=== PATIENT | male | born 1990 | race Caucasian/White ===

== ENCOUNTER 2016-11-02 15:48 | Emergency (ER) | payer BC, OTHER ==
--- NOTE | 2016-11-02 15:50 | EDM.PDOC ---
ED HPI GENERAL MEDICAL PROBLEM - General Chief Complaint: Chest Pain Stated Complaint: CHEST PAIN [id number] Time Seen by Provider: 11/02/16 16:10 Source of Information: Reports: Patient, RN Notes Reviewed History Limitations: Reports: No Limitations - History of Present Illness INITIAL COMMENTS - FREE TEXT/NARRATIVE: Complains of onset of left lower chest/upper abdominal pain at 0130 this morning while playing video games. Patient reports SOB on and off. Pain is worse with deep breathing and some movement/positioning. Denies radiating pain or palpitation. Denies drug use or injury. Severity: Severe Improves with: Reports: None Worsens with: Reports: None Associated Symptoms: Reports: No Other Symptoms Mid-Sternal Chest Pain Score (Numeric/FACES): 10 - Related Data Allergies Allergy/AdvReac Type Severity Reaction Status Date / Time No Known Allergies Allergy Verified 04/08/14 12:03 Home Meds: Home Meds . [No Known Home Meds] 04/08/14 [History] Past Medical History - Past Health History Medical/Surgical History: Denies Medical/Surgical History Social & Family History - Family History Family Medical History: Noncontributory - Tobacco Use Smoking Status *Q: Former Smoker Years of Tobacco use: 3 Used Tobacco, but Quit: Yes Month Tobacco Last Used: 06 Second Hand Smoke Exposure: No - Alcohol Use Days Per Week of Alcohol Use: 0 - Recreational Drug Use Recreational Drug Use: No - Living Situation & Occupation Living situation: Reports: with Family Occupation: Employed ED ROS GENERAL - Review of Systems Review Of Systems: ROS reveals no pertinent complaints other than HPI. ED EXAM, GENERAL - Physical Exam Exam: See Below Exam Limited By: No Limitations General Appearance: Alert, WD/WN, No Apparent Distress, Obese Eye Exam: Bilateral Eye: Normal Inspection Ears: Normal External Exam, Normal Canal, Hearing Grossly Normal, Normal TMs Ear Exam: Bilateral Ear: Auricle Normal, Canal Normal, TM normal Nose: Normal Inspection, Normal Mucosa, No Blood Throat/Mouth: Normal Inspection, Normal Lips, Normal Teeth, Normal Gums, Normal Oropharynx, Normal Voice, No Airway Compromise Head: Atraumatic, Normocephalic Neck: Normal Inspection, Supple, Non-Tender, Full Range of Motion Respiratory/Chest: No Respiratory Distress, Lungs Clear, Normal Breath Sounds, No Accessory Muscle Use, Chest Non-Tender, Other (tender to palpation at left lower anterior chest wall.) Cardiovascular: Normal Peripheral Pulses, Regular Rate, Rhythm, No Edema, No Gallop, No JVD, No Murmur, No Rub GI/Abdominal: Normal Bowel Sounds, Soft, No Distention, No Abnormal Bruit, Pelvis Stable, Tender (LUQ), Other (Mild LUQ tenderness, otherwise normal. ). No: Guarding, Rigid, Rebound Rectal (Males) Exam: Deferred Back Exam: Normal Inspection, Full Range of Motion. No: CVA Tenderness (L), CVA Tenderness (R) Extremities: Normal Inspection, Normal Range of Motion, Non-Tender, Normal Capillary Refill, No Pedal Edema Neurological: Alert, Oriented, CN II-XII Intact, Normal Cognition, Normal Gait, No Motor/Sensory Deficits Psychiatric: Normal Affect, Normal Mood Skin Exam: Warm, Dry, Intact, Normal Color, No Rash Lymphatic: No Adenopathy EKG INTERPRETATION EKG Date: 11/02/16 Time: 16:15 Rhythm: other (sinus rhythm) Rate (beats/min): 90 [place]: normal P-wave: present QRS: other (tiny Q wave in lead I and III, otherwise normal.) ST-T: other (nonspecific flattened T waves in lead III.) QT: normal Comparison: NA - no prior EKG Course - Vital Signs Last Recorded V/S: Last Vital Signs Temp 38.5 C H 11/02/16 18:07 Pulse 83 11/02/16 18:07 Resp 24 H 11/02/16 18:07 BP 116/63 11/02/16 18:07 Pulse Ox 96 11/02/16 18:07 - Orders/Labs/Meds Orders: Active Orders 24 hr Category Date Time Status EKG 12 Lead [EKG Documentation Completion] [RC] STAT Care 11/02/16 16:11 Active Peripheral IV Care [RC] . DIRECTED Care 11/02/16 16:20 Active Sodium Chloride 0.9% [Saline Flush] Med 11/02/16 16:18 Active 10 ml FLUSH ASDIRECTED PRN Peripheral IV Insertion Adult [OM.PC] Stat Oth 11/02/16 16:19 Ordered Medication Orders Sodium Chloride (Saline Flush) 10 ml FLUSH ASDIRECTED PRN PRN Reason: Keep Vein Open Last Admin: 11/02/16 16:36 Dose: 10 ml Labs: Laboratory Tests 11/02/16 11/02/16 11/02/16 Range/Units 16:30 16:30 16:30 WBC 4.7 L (5.0-10.0) 10^3/uL RBC 5.06 (4.6-6.2) 10^6/uL Hgb 15.0 (14.0-18.0) g/dL Hct 43.7 (40.0-54.0) % MCV 86.4 (80-100) fL MCH 29.6 (27.0-34.0) pg MCHC 34.3 (33.0-35.0) g/dL Plt Count 210 (150-450) 10^3/uL Neut % (Auto) 43.8 (42.2-75.2) % Lymph % (Auto) 29.9 (20.5-50.1) % [place] % (Auto) 19.7 H (2-8) % Eos % (Auto) 5.3 H (1.0-3.0) % Baso % (Auto) 1.3 H (0.0-1.0) % Add Manual Diff Yes Neutrophils % (Manual) 46 % Band Neutrophils % 6 % Lymphocytes % (Manual) 31 % Monocytes % (Manual) 13 % Eosinophils % (Manual) 4 % PT (9.0-12.0) SEC INR (0.9-1.2) D-Dimer, Quantitative 1230 H (0-400) ng/mL Sodium 137 (135-145) mmol/L Potassium 3.9 (3.6-5.0) mmol/L Chloride 105 (101-111) mmol/L Carbon Dioxide 24.0 (21.0-31.0) mmol/L Anion Gap 11.9 BUN 10 (7-18) mg/dL Creatinine 0.9 (0.6-1.3) mg/dL Est Cr Clr Drug Dosing 132.47 mL/min Estimated GFR (MDRD) > 60 BUN/Creatinine Ratio 11.11 Glucose 107 H (74-105) mg/dL Calcium 9.2 (8.4-10.2) mg/dl Total Bilirubin 0.5 (0.2-1.0) mg/dL AST 95 H (10-42) IU/L ALT 105 H (10-60) IU/L Alkaline Phosphatase 113 (42-121) IU/L Troponin I < 0.02 (0.00-0.02) ng/ml Total Protein 7.3 (6.7-8.2) g/dl Albumin 4.0 (3.2-5.5) g/dl Globulin 3.3 Albumin/Globulin Ratio 1.21 Amylase 56 (28-100) U/L Lipase 21 L (22-51) U/L Urine Color (YELLOW) Urine Appearance (CLEAR) Urine pH (5.0-9.0) Ur Specific [place] (1.005-1.030) Urine Protein (NEGATIVE) Urine Glucose (UA) (NEGATIVE) Urine Ketones (NEGATIVE) mg/dL Urine Occult Blood (NEGATIVE) Urine Nitrite (NEGATIVE) Urine Bilirubin (NEGATIVE) Urine Urobilinogen (0.2-1.0) mg/dL Ur Leukocyte Esterase (NEGATIVE) Urine RBC /HPF Urine WBC (0-5/HPF) /HPF Ur Epithelial Cells /HPF Urine Bacteria (0-FEW/HPF) /HPF Monoscreen 11/02/16 11/02/16 11/02/16 Range/Units 16:30 16:30 18:03 WBC (5.0-10.0) 10^3/uL RBC (4.6-6.2) 10^6/uL Hgb (14.0-18.0) g/dL Hct (40.0-54.0) % MCV (80-100) fL MCH (27.0-34.0) pg MCHC (33.0-35.0) g/dL Plt Count (150-450) 10^3/uL Neut % (Auto) (42.2-75.2) % Lymph % (Auto) (20.5-50.1) % [place] % (Auto) (2-8) % Eos % (Auto) (1.0-3.0) % Baso % (Auto) (0.0-1.0) % Add Manual Diff Neutrophils % (Manual) % Band Neutrophils % % Lymphocytes % (Manual) % Monocytes % (Manual) % Eosinophils % (Manual) % PT 9.8 (9.0-12.0) SEC INR 1.0 (0.9-1.2) D-Dimer, Quantitative (0-400) ng/mL Sodium (135-145) mmol/L Potassium (3.6-5.0) mmol/L Chloride (101-111) mmol/L Carbon Dioxide (21.0-31.0) mmol/L Anion Gap BUN (7-18) mg/dL Creatinine (0.6-1.3) mg/dL Est Cr Clr Drug Dosing mL/min Estimated GFR (MDRD) BUN/Creatinine Ratio Glucose (74-105) mg/dL Calcium (8.4-10.2) mg/dl Total Bilirubin (0.2-1.0) mg/dL AST (10-42) IU/L ALT (10-60) IU/L Alkaline Phosphatase (42-121) IU/L Troponin I (0.00-0.02) ng/ml Total Protein (6.7-8.2) g/dl Albumin (3.2-5.5) g/dl Globulin Albumin/Globulin Ratio Amylase (28-100) U/L Lipase (22-51) U/L Urine Color Yellow (YELLOW) Urine Appearance Clear (CLEAR) Urine pH 7.5 (5.0-9.0) Ur Specific [place] 1.015 (1.005-1.030) Urine Protein Negative (NEGATIVE) Urine Glucose (UA) Negative (NEGATIVE) Urine Ketones Negative (NEGATIVE) mg/dL Urine Occult Blood Negative (NEGATIVE) Urine Nitrite Negative (NEGATIVE) Urine Bilirubin Negative (NEGATIVE) Urine Urobilinogen 0.2 (0.2-1.0) mg/dL Ur Leukocyte Esterase Negative (NEGATIVE) Urine RBC Not seen /HPF Urine WBC 0-5 (0-5/HPF) /HPF Ur Epithelial Cells Rare /HPF Urine Bacteria Rare (0-FEW/HPF) /HPF Monoscreen Negative Meds: Medications Generic Name Dose Route Start Last Admin Trade Name Freq PRN Reason Stop Dose Admin Sodium Chloride 10 ml 11/02/16 16:18 11/02/16 16:36 Saline Flush FLUSH 10 ml ASDIRECTED PRN Administration Keep Vein Open Discontinued Medications Generic Name Dose Route Start Last Admin Trade Name Freq PRN Reason Stop Dose Admin Acetaminophen 650 mg 11/02/16 18:52 11/02/16 19:01 Tylenol PO 11/02/16 18:53 650 mg NOW ONE Administration Iopamidol 100 ml 11/02/16 17:20 11/02/16 18:35 Isovue-370 (76%) IVPUSH 11/02/16 17:21 100 ml ONETIME ONE Administration - Radiology Interpretation Free Text/Narrative:: Chest x-ray: Per rad report reveals unremarkable chest radiograph. CT chest: Per rad report no evidence for pulmonary embolism, dependent atelectasis in the lungs bilaterally, mild splenomegaly and incidental/nonacute findings are described above, normal gallbladder. - Re-Assessments/Exams Free Text/Narrative Re-Assessment/Exam: 11/02/16 19:34 Pt developed a fever briefly while in the ER. At 1930HRS pt states that all of his Sx's have gone away and he feels fine. He also adds that his children have been ill at home this week with fevers. Departure - Departure Time of Disposition: 19:35 Disposition: Home, Self-Care 01 Condition: good Clinical Impression: Atypical chest pain, Upper abdominal pain Fever Qualifiers: Fever type: unspecified Qualified Code(s): R50.9 - Fever, unspecified Instructions: Nonspecific Chest Pain, [id number], Fever, Adult, [id number] Forms: ED Department Discharge Additional Instructions: Rest, drink plenty of water. Use Tylenol or Ibuprofen as needed for fever or pain. Follow directions on package label for dosing and precautions. Follow up in clinic if not improved in 3 days. Return to ER if worse at any time, or if any new or concerning symptoms develop. - My Orders Last 24 Hours: My Active Orders 11/02/16 16:11 EKG 12 Lead [EKG Documentation Completion] [RC] STAT 11/02/16 16:18 Sodium Chloride 0.9% [Saline Flush] 10 ml FLUSH ASDIRECTED PRN 11/02/16 16:19 Peripheral IV Insertion Adult [OM.PC] Stat 11/02/16 16:20 Peripheral IV Care [RC] . DIRECTED - Assessment/Plan Last 24 Hours: My Active Orders 11/02/16 16:11 EKG 12 Lead [EKG Documentation Completion] [RC] STAT 11/02/16 16:18 Sodium Chloride 0.9% [Saline Flush] 10 ml FLUSH ASDIRECTED PRN 11/02/16 16:19 Peripheral IV Insertion Adult [OM.PC] Stat 11/02/16 16:20 Peripheral IV Care [RC] . DIRECTED
[2016-11-02] MEDS ORDERED: Sodium Chloride 0.9% 10 ML Syringe FLUSH PRN (16:18)
[2016-11-02 16:56] LABS: CHLORIDE,CL 105 mmol/L (101-111); SODIUM,NA 137 mmol/L (135-145)
[2016-11-02] MEDS ORDERED: Iopamidol 755 Mg/ML 100 ML Bottle IVPUSH ONE (17:20)
[2016-11-02 18:08] VITALS: BP 116/63
[2016-11-02] MEDS ORDERED: Acetaminophen 325 MG Tab PO ONE (18:52)
--- NOTE | 2016-11-24 11:58 | EKG ---
11/02/2016 - GISELL DUNN T - EKG is sinus rhythm with a rate of 90. Normal NM interval. Normal axis. EKG is within normal limits. [facility] /[id number]
== END 2016-11-02 19:48 | disposition home or self-care (01) ==
LOC: DL.ED 15:48
DX: R07.89 Other chest pain (principal); R50.9 Fever, unspecified; R10.12 Left upper quadrant pain; Z87.891 Personal history of nicotine dependence
CPT/HCPCS: 36415; 71010; 71260; 80053; 81001; 82150; 83690; 84484; 85025; 85379; 85610; 86308; 93005; 93010; 99285; A9270; J7050; Q9967; 99282

== ENCOUNTER 2016-11-03 19:00 | Emergency (ER) | payer BC, OTHER ==
[2016-11-03] MEDS ORDERED: Iopamidol 612 MG/ML 100 ML Bottle IVPUSH ONE (19:38)
[2016-11-03] MEDS ORDERED: Sodium Chloride 0.9% 1,000 ML IV ONE (19:38)
--- NOTE | 2016-11-03 19:41 | EDM.PDOC ---
ED HPI GENERAL MEDICAL PROBLEM - General Chief Complaint: Abdominal Pain Stated Complaint: SIDE/CHEST PAINS, [id number] Time Seen by Provider: 11/03/16 19:15 Source of Information: Reports: Patient History Limitations: Reports: No Limitations - History of Present Illness INITIAL COMMENTS - FREE TEXT/NARRATIVE: c/o LUQ pain starting intermittently at noon today. Pain worse tonight and radiating to back, worse with movement. Patient seen in ED last laura with left chest pain with negative findings. No fever today, Has been pushing fluids, only ate banana and pain started after eating and taking ibuprofen. . Denies heartburn. Onset: Today Duration: Intermittent, Waxing/Waning Location: Reports: Abdomen Quality: Reports: Sharp Severity: Mild Worsens with: Reports: Movement Left Upper Abdomen Pain Score (Numeric/FACES): 10 - Related Data Allergies Allergy/AdvReac Type Severity Reaction Status Date / Time No Known Allergies Allergy Verified 11/03/16 19:13 Home Meds: Home Meds . [No Known Home Meds] 04/08/14 [History] Past Medical History - Past Health History Medical/Surgical History: Denies Medical/Surgical History - Infectious Disease History Infectious Disease History: Reports: Chicken Pox Social & Family History - Family History Family Medical History: Noncontributory - Tobacco Use Smoking Status *Q: Never Smoker Years of Tobacco use: 3 Packs/Tins Daily: 1 Used Tobacco, but Quit: Yes Month Tobacco Last Used: Second Hand Smoke Exposure: No - Caffeine Use Caffeine Use: Reports: Soda, Tea - Alcohol Use Days Per Week of Alcohol Use: 0 - Recreational Drug Use Recreational Drug Use: No - Living Situation & Occupation Living situation: Reports: with Family Occupation: Employed ED ROS GENERAL - Review of Systems Review Of Systems: See Below Constitutional: Reports: No Symptoms HEENT: Reports: No Symptoms Respiratory: Reports: No Symptoms, Shortness of Breath (primary ED complaint last laura, No "chest" pain or SOB this laura. ) GI/Abdominal: Reports: Abdominal Pain (LUQ) : Reports: No Symptoms Musculoskeletal: Reports: No Symptoms Skin: Reports: Dryness Neurological: Reports: No Symptoms ED EXAM, GI/ABD - Physical Exam Exam: See Below Exam Limited By: No Limitations General Appearance: Alert, No Apparent Distress Ears: Normal External Exam Nose: Normal Inspection Throat/Mouth: Normal Inspection Head: Atraumatic Neck: Normal Inspection Respiratory/Chest: No Respiratory Distress, Lungs Clear Cardiovascular: Normal Peripheral Pulses, Regular Rate, Rhythm GI/Abdominal: Normal Bowel Sounds, Soft, Tenderness (LUQ). No: Hepatomegaly, Splenomegaly Back Exam: Normal Inspection, Full Range of Motion Extremities: Normal Inspection, Normal Range of Motion Neurological: Alert, Oriented Psychiatric: Normal Affect, Normal Mood Skin Exam: Warm, Dry, Intact, Normal Color Course - Vital Signs Last Recorded V/S: Last Vital Signs Temp 98 F 11/03/16 19:08 Pulse 75 11/03/16 21:15 Resp 18 11/03/16 21:15 BP 121/78 11/03/16 21:15 Pulse Ox 99 11/03/16 21:15 - Orders/Labs/Meds Labs: Laboratory Tests 11/03/16 11/03/16 11/03/16 Range/Units 19:15 19:15 19:15 WBC 6.1 (5.0-10.0) 10^3/uL RBC 4.68 (4.6-6.2) 10^6/uL Hgb 14.0 (14.0-18.0) g/dL Hct 40.4 (40.0-54.0) % MCV 86.3 (80-100) fL MCH 29.9 (27.0-34.0) pg MCHC 34.7 (33.0-35.0) g/dL Plt Count 223 (150-450) 10^3/uL Neut % (Auto) 41.4 L (42.2-75.2) % Lymph % (Auto) 34.8 (20.5-50.1) % [place] % (Auto) 17.0 H (2-8) % Eos % (Auto) 5.3 H (1.0-3.0) % Baso % (Auto) 1.5 H (0.0-1.0) % Add Manual Diff Yes Neutrophils % (Manual) 56 % Lymphocytes % (Manual) 28 % Monocytes % (Manual) 12 % Eosinophils % (Manual) 4 % Sodium 136 (135-145) mmol/L Potassium 3.4 L (3.6-5.0) mmol/L Chloride 103 (101-111) mmol/L Carbon Dioxide 25.0 (21.0-31.0) mmol/L Anion Gap 11.4 BUN 13 (7-18) mg/dL Creatinine 1.0 (0.6-1.3) mg/dL Est Cr Clr Drug Dosing TNP Estimated GFR (MDRD) > 60 BUN/Creatinine Ratio 13.00 Glucose 109 H (74-105) mg/dL Calcium 8.6 (8.4-10.2) mg/dl Total Bilirubin 0.6 (0.2-1.0) mg/dL AST 102 H (10-42) IU/L ALT 117 H (10-60) IU/L Alkaline Phosphatase 111 (42-121) IU/L Total Protein 7.1 (6.7-8.2) g/dl Albumin 4.0 (3.2-5.5) g/dl Globulin 3.1 Albumin/Globulin Ratio 1.29 Amylase 55 (28-100) U/L Lipase 23 (22-51) U/L Urine Color (YELLOW) Urine Appearance (CLEAR) Urine pH (5.0-9.0) Ur Specific [place] (1.005-1.030) Urine Protein (NEGATIVE) Urine Glucose (UA) (NEGATIVE) Urine Ketones (NEGATIVE) Urine Occult Blood (NEGATIVE) Urine Nitrite (NEGATIVE) Urine Bilirubin (NEGATIVE) Urine Urobilinogen (0.2-1.0) mg/dL Ur Leukocyte Esterase (NEGATIVE) Urine RBC /HPF Urine WBC (0-5/HPF) /HPF Ur Epithelial Cells /HPF Urine Bacteria (0-FEW/HPF) /HPF // Range/Units 19:43 WBC (5.0-10.0) 10^3/uL RBC (4.6-6.2) 10^6/uL Hgb (14.0-18.0) g/dL Hct (40.0-54.0) % MCV (80-100) fL MCH (27.0-34.0) pg MCHC (33.0-35.0) g/dL Plt Count (150-450) 10^3/uL Neut % (Auto) (42.2-75.2) % Lymph % (Auto) (20.5-50.1) % [place] % (Auto) (2-8) % Eos % (Auto) (1.0-3.0) % Baso % (Auto) (0.0-1.0) % Add Manual Diff Neutrophils % (Manual) % Lymphocytes % (Manual) % Monocytes % (Manual) % Eosinophils % (Manual) % Sodium (135-145) mmol/L Potassium (3.6-5.0) mmol/L Chloride (101-111) mmol/L Carbon Dioxide (21.0-31.0) mmol/L Anion Gap BUN (7-18) mg/dL Creatinine (0.6-1.3) mg/dL Est Cr Clr Drug Dosing Estimated GFR (MDRD) BUN/Creatinine Ratio Glucose (74-105) mg/dL Calcium (8.4-10.2) mg/dl Total Bilirubin (0.2-1.0) mg/dL AST (10-42) IU/L ALT (10-60) IU/L Alkaline Phosphatase (42-121) IU/L Total Protein (6.7-8.2) g/dl Albumin (3.2-5.5) g/dl Globulin Albumin/Globulin Ratio Amylase (28-100) U/L Lipase (22-51) U/L Urine Color Light yellow (YELLOW) Urine Appearance Clear (CLEAR) Urine pH 6.5 (5.0-9.0) Ur Specific [place] <= 1.005 (1.005-1.030) Urine Protein Negative (NEGATIVE) Urine Glucose (UA) Negative (NEGATIVE) Urine Ketones Negative (NEGATIVE) Urine Occult Blood Trace-intact H (NEGATIVE) Urine Nitrite Negative (NEGATIVE) Urine Bilirubin Negative (NEGATIVE) Urine Urobilinogen 0.2 (0.2-1.0) mg/dL Ur Leukocyte Esterase Negative (NEGATIVE) Urine RBC 0-5 /HPF Urine WBC 0-5 (0-5/HPF) /HPF Ur Epithelial Cells Occasional /HPF Urine Bacteria Rare (0-FEW/HPF) /HPF Meds: Medications Discontinued Medications Generic Name Dose Route Start Last Admin Trade Name Freq PRN Reason Stop Dose Admin Sodium Chloride 1,000 mls @ 999 mls/hr 11/03/16 19:38 11/03/16 19:41 Normal Saline IV 11/03/16 20:38 999 mls/hr .BOLUS ONE Administration Iopamidol 100 ml 11/03/16 19:38 11/03/16 20:00 Isovue-300 (61%) IVPUSH 11/03/16 19:39 100 ml ONETIME ONE Administration Departure - Departure Time of Disposition: 21:15 Disposition: Home, Self-Care 01 Condition: good Clinical Impression: Enteritis, Hepatosplenomegaly - Discharge Information Instructions: Abdominal Pain, Adult, [id number] Referrals: PCP,None [Primary Care Provider] - Forms: Return to Work/School Form, ED Department Discharge Additional Instructions: light activity encourage fluids follow up if continued pain follow up one week in clinic to recheck liver function no contact sports or aggressive activity until recheck in clinic one- 2 weeks ibuprofen 600mg every hours as needed for discomfort or fever.
[2016-11-03 19:43] LABS: CHLORIDE,CL 103 mmol/L (101-111); SODIUM,NA 136 mmol/L (135-145)
[2016-11-03 21:21] VITALS: BP 121/78
== END 2016-11-03 21:18 | disposition home or self-care (01) ==
LOC: DL.ED 19:00
DX: K52.9 Noninfective gastroenteritis and colitis, unspecified (principal); R16.2 Hepatomegaly with splenomegaly, not elsewhere classified
CPT/HCPCS: 36415; 74178; 80053; 81001; 82150; 83690; 85025; 96360; 99284; J7030; Q9967; 99282

== ENCOUNTER 2019-11-16 17:54 | Emergency (ER) | payer BC ==
[2019-11-16 18:36] VITALS: BP 130/76; PULSE 102
[2019-11-16 20:23] LABS: ANION GAP 16.9 mEq/L (7-13); CHLORIDE,CL 103 mmol/L (98-107); SODIUM,NA 140 mmol/L (136-145)
--- NOTE | 2019-11-16 22:49 | EDM.PDOC ---
ED HPI GENERAL MEDICAL PROBLEM - General Chief Complaint: Cardiovascular Problem Stated Complaint: CHEST PAIN, FECIES WERE BLACK, BREATHING Time Seen by Provider: 11/16/19 22:00 Source of Information: Reports: Patient, Family History Limitations: Reports: No Limitations - History of Present Illness INITIAL COMMENTS - FREE TEXT/NARRATIVE: ED with c/o epigastric pain worse with eating yesterday, felt short of breath today, hx of liver problems, has had intermittent RUQ pain and nausea for over 2 months, has not followed in clinic. Has not tried anything. 10 power kick sodas at least per day, denied alcohol or tobacco abuse. - Related Data Allergies Allergy/AdvReac Type Severity Reaction Status Date / Time No Known Allergies Allergy Verified 11/16/19 18:37 Home Meds: Home Meds Hydrocodone/Acetaminophen [Hydrocodone-Acetamin 10-325 mg] 0.5 - 1 tab PO Q8H PRN #6 tablet 03/28/18 [Rx] Past Medical History - Past Health History Medical/Surgical History: Denies Medical/Surgical History Other Gastrointestinal History: Reports "liver attack" - Infectious Disease History Infectious Disease History: Reports: Chicken Pox Social & Family History - Family History Family Medical History: Noncontributory - Tobacco Use Smoking Status *Q: Never Smoker Second Hand Smoke Exposure: No - Caffeine Use Caffeine Use: Reports: None - Recreational Drug Use Recreational Drug Use: No - Living Situation & Occupation Living situation: Reports: with Family Occupation: Employed ED ROS GENERAL - Review of Systems Review Of Systems: See Below ED EXAM, GENERAL - Physical Exam Exam: See Below Exam Limited By: No Limitations General Appearance: Alert, No Apparent Distress, Obese Eye Exam: Bilateral Eye: EOMI, PERRL Ears: Normal TMs Nose: Normal Inspection Throat/Mouth: Normal Inspection Head: Atraumatic, Normocephalic Neck: Normal Inspection Respiratory/Chest: No Respiratory Distress, Lungs Clear, Normal Breath Sounds, No Accessory Muscle Use Cardiovascular: Normal Peripheral Pulses, Regular Rate, Rhythm GI/Abdominal: Normal Bowel Sounds, Soft, Tender (mild mid epigastric), Other (nontender RUQ). No: Distended, Guarding, Rebound, Hepatomegaly, Splenomegaly Neurological: Alert, Oriented, Normal Cognition Psychiatric: Flat Affect Skin Exam: Warm, Dry, Intact, Normal Color Course - Vital Signs Last Recorded V/S: Last Vital Signs Temp 99.3 F 11/16/19 18:34 Pulse 102 H 11/16/19 18:34 Resp 18 11/16/19 18:34 BP 130/76 11/16/19 18:34 Pulse Ox 96 11/16/19 18:34 - Orders/Labs/Meds Labs: Laboratory Tests 11/16/19 11/16/19 11/16/19 Range/Units 19:35 19:35 19:35 WBC 10.3 H (5.0-10.0) 10^3/uL RBC 5.16 (4.6-6.2) 10^6/uL Hgb 15.2 (14.0-18.0) g/dL Hct 44.1 (40.0-54.0) % MCV 85.5 (80-100) fL MCH 29.5 (27.0-34.0) pg MCHC 34.5 (33.0-35.0) g/dL Plt Count 316 D (150-450) 10^3/uL Neut % (Auto) 63.1 (42.2-75.2) % Lymph % (Auto) 25.6 (20.5-50.1) % [place] % (Auto) 8.2 H (2-8) % Eos % (Auto) 2.4 (1.0-3.0) % Baso % (Auto) 0.7 (0.0-1.0) % PT 9.8 (9.0-12.0) SEC INR 1.0 (0.9-1.2) Sodium 140 (136-145) mmol/L Potassium 3.9 (3.5-5.1) mmol/L Chloride 103 (98-107) mmol/L Carbon Dioxide 24 (21-32) mmol/L Anion Gap 16.9 H (7-13) mEq/L BUN 20 H (7-18) mg/dL Creatinine 1.07 (0.70-1.30) mg/dL Est Cr Clr Drug Dosing 108.49 mL/min Estimated GFR (MDRD) > 60 BUN/Creatinine Ratio 18.7 (No establ ref range) Glucose 90 (74-99) mg/dL Lactic Acid (0.4-2.0) mmol/L Calcium 9.0 (8.5-10.1) mg/dL Total Bilirubin 0.3 (0.2-1.0) mg/dL AST 30 (15-37) U/L ALT 74 H (16-63) U/L Alkaline Phosphatase 110 (46-116) U/L Total Protein 7.8 (6.4-8.2) g/dL Albumin 3.9 (3.4-5.0) g/dL Globulin 3.9 Albumin/Globulin Ratio 1.0 Amylase 72 (25-115) U/L Lipase 100 (73-393) U/L Urine Color (YELLOW) Urine Appearance (CLEAR) Urine pH (5.0-9.0) Ur Specific [place] (1.005-1.030) Urine Protein (NEGATIVE) Urine Glucose (UA) (NEGATIVE) Urine Ketones (NEGATIVE) Urine Occult Blood (NEGATIVE) Urine Nitrite (NEGATIVE) Urine Bilirubin (NEGATIVE) Urine Urobilinogen (0.2-1.0) mg/dL Ur Leukocyte Esterase (NEGATIVE) Urine Opiates Screen (NEGATIVE) Ur Oxycodone Screen (NEGATIVE) Urine Methadone Screen (NEGATIVE) Ur Barbiturates Screen (NEGATIVE) U Tricyclic Antidepress (NEGATIVE) Ur Phencyclidine Scrn (NEGATIVE) Ur Amphetamine Screen (NEGATIVE) U Methamphetamines Scrn (NEGATIVE) Urine MDMA Screen (NEGATIVE) U Benzodiazepines Scrn (NEGATIVE) Urine Cocaine Screen (NEGATIVE) U Marijuana (THC) Screen (NEGATIVE) Ethyl Alcohol < 3 (0) mg/dL 11/16/19 11/16/19 11/16/19 Range/Units 19:35 20:21 20:21 WBC (5.0-10.0) 10^3/uL RBC (4.6-6.2) 10^6/uL Hgb (14.0-18.0) g/dL Hct (40.0-54.0) % MCV (80-100) fL MCH (27.0-34.0) pg MCHC (33.0-35.0) g/dL Plt Count (150-450) 10^3/uL Neut % (Auto) (42.2-75.2) % Lymph % (Auto) (20.5-50.1) % [place] % (Auto) (2-8) % Eos % (Auto) (1.0-3.0) % Baso % (Auto) (0.0-1.0) % PT (9.0-12.0) SEC INR (0.9-1.2) Sodium (136-145) mmol/L Potassium (3.5-5.1) mmol/L Chloride (98-107) mmol/L Carbon Dioxide (21-32) mmol/L Anion Gap (7-13) mEq/L BUN (7-18) mg/dL Creatinine (0.70-1.30) mg/dL Est Cr Clr Drug Dosing mL/min Estimated GFR (MDRD) BUN/Creatinine Ratio (No establ ref range) Glucose (74-99) mg/dL Lactic Acid 1.0 (0.4-2.0) mmol/L Calcium (8.5-10.1) mg/dL Total Bilirubin (0.2-1.0) mg/dL AST (15-37) U/L ALT (16-63) U/L Alkaline Phosphatase (46-116) U/L Total Protein (6.4-8.2) g/dL Albumin (3.4-5.0) g/dL Globulin Albumin/Globulin Ratio Amylase (25-115) U/L Lipase (73-393) U/L Urine Color Yellow (YELLOW) Urine Appearance Clear (CLEAR) Urine pH 6.0 (5.0-9.0) Ur Specific [place] >= 1.030 (1.005-1.030) Urine Protein Negative (NEGATIVE) Urine Glucose (UA) Negative (NEGATIVE) Urine Ketones Negative (NEGATIVE) Urine Occult Blood Negative (NEGATIVE) Urine Nitrite Negative (NEGATIVE) Urine Bilirubin Negative (NEGATIVE) Urine Urobilinogen 0.2 (0.2-1.0) mg/dL Ur Leukocyte Esterase Negative (NEGATIVE) Urine Opiates Screen Negative (NEGATIVE) Ur Oxycodone Screen Negative (NEGATIVE) Urine Methadone Screen Negative (NEGATIVE) Ur Barbiturates Screen Negative (NEGATIVE) U Tricyclic Antidepress Negative (NEGATIVE) Ur Phencyclidine Scrn Negative (NEGATIVE) Ur Amphetamine Screen Negative (NEGATIVE) U Methamphetamines Scrn Negative (NEGATIVE) Urine MDMA Screen Negative (NEGATIVE) U Benzodiazepines Scrn Negative (NEGATIVE) Urine Cocaine Screen Negative (NEGATIVE) U Marijuana (THC) Screen Negative (NEGATIVE) Ethyl Alcohol (0) mg/dL Departure - Departure Time of Disposition: 22:45 Disposition: Home, Self-Care 01 Condition: Good Clinical Impression: Epigastric abdominal pain Instructions: Abdominal Pain, Adult, [id number] Referrals: PCP,None [Primary Care Provider] - Forms: ED Department Discharge Additional Instructions: bland diet low fat diet omeprzole 20mg daily in am on empty stomach decrease caffeine use follow up in clinic next week Sepsis Event Note (ED) - Evaluation Sepsis Screening Result: No Definite Risk
== END 2019-11-16 22:55 | disposition home or self-care (01) ==
LOC: DL.ED 17:54
DX: R10.13 Epigastric pain (principal)
CPT/HCPCS: 36415; 80053; 80305-QW; 80307; 81003; 82150; 82272; 83605; 83690; 85025; 85610; 93005; 99284-25

== ENCOUNTER 2023-09-17 04:32 | Emergency (ER) | payer BC ==
[2023-09-17 04:58] VITALS: BP 121/81; PULSE 89
[2023-09-17] MEDS: Amoxicillin/Clavulanate K 875-125 MG Tab PO ONE (05:02)
[2023-09-17] MEDS: Lidocaine 1% 30 ML SDV INJECT ONE (05:04)
== END 2023-09-17 06:15 | disposition home or self-care (01) ==
LOC: DL.ED 04:32
DX: S61.052A Open bite of left thumb without damage to nail, initial encounter (principal); S61.051A Open bite of right thumb without damage to nail, initial encounter; Z79.899 Other long term (current) drug therapy; W54.0XXA Bitten by dog, initial encounter
CPT/HCPCS: 12001; 99282; 99283; A9270-GY; J3490

== ENCOUNTER 2023-09-18 18:11 | Inpatient (IN) | payer BC ==
[2023-09-18] MEDS: Ampicillin/Sulbactam Na 3 GM in Sodium Chloride 0.9% 100 ML IV ONE (19:03)
[2023-09-18 19:18] LABS: BASOPHILS PERCENT AUTO 0.8 % (0.0-1.0); EOSINOPHILS PERCENT AUTO 2.3 % (1.0-3.0); HEMATOCRIT 46.4 % (40.0-54.0); HEMOGLOBIN 15.6 g/dL (14.0-18.0); LYMPHOCYTES PERCENT AUTO 17.9 % (20.5-50.1); MEAN CORPUSCULAR HEMOGLOBIN 29.2 pg (27.0-34.0); MEAN CORPUSCULAR HGB CONC 33.6 g/dL (33.0-35.0); MEAN CORPUSCULAR VOLUME 86.7 fL (80-100); MONOCYTES PERCENT AUTO 9.3 % (2-8); NEUTROPHILS PERCENT AUTO 69.7 % (42.2-75.2); PLATELET COUNT,PLT 344 10^3/uL (150-450); RED BLOOD CELL COUNT 5.35 10^6/uL (4.6-6.2); WHITE BLOOD CELL COUNT,WBC 10.1 10^3/uL (5.0-10.0)
[2023-09-18 19:39] LABS: A/G RATIO 0.9; ALBUMIN 3.8 g/dL (3.4-5.0); ANION GAP 14.1 mEq/L (7-13); BILIRUBIN TOTAL 0.4 mg/dL (0.2-1.0); BUN/CREATININE RATIO 13.2 (No establ ref range); CALCIUM 8.8 mg/dL (8.5-10.1); CREATININE 1.14 mg/dL (0.70-1.30); EST CRCL DRUG DOSING (CG) 98.16 mL/min; POTASSIUM,K 4.1 mmol/L (3.5-5.1); PROTEIN TOTAL,TP 8.2 g/dL (6.4-8.2)
[2023-09-18] MEDS ORDERED: Ondansetron 4 MG/2 ML SDV IVPUSH PRN (19:48)
[2023-09-18] MEDS ORDERED: Acetaminophen 325 MG Tab PO PRN (19:48)
[2023-09-18] MEDS ORDERED: Polyethylene Glycol 3350 Powder 17 GM Packet PO PRN (19:48)
[2023-09-18] MEDS ORDERED: Albuterol/Ipratropium 3.0-0.5 MG/3 ML Neb Soln NEB PRN (19:48)
[2023-09-18] MEDS ORDERED: Sennosides/Docusate Sodium 50-8.6 MG Tab PO PRN (19:48)
[2023-09-18] MEDS ORDERED: Naloxone 2 MG/2 ML Syringe IVPUSH PRN (19:48)
[2023-09-18] MEDS ORDERED: HYDROmorphone 0.5 MG/0.5 ML Syringe IVPUSH PRN (19:48)
[2023-09-18] MEDS ORDERED: Sodium Chloride 0.9% 10 ML Syringe FLUSH PRN (19:48)
[2023-09-18] MEDS ORDERED: Magnesium Hydroxide 400 MG/5 ML Susp 30 ML Cup PO PRN (19:48)
[2023-09-18] MEDS: HYDROmorphone 1 MG/ML Syringe ONE (20:05)
[2023-09-18 20:39] LABS: HEMOGLOBIN A1C 5.5 % (<5.7)
[2023-09-18] MEDS: Famotidine 20 MG/2 ML SDV IVPUSH ONE (21:45)
[2023-09-18] MEDS: Naproxen 250 MG Tab PO SCH (21:45)
[2023-09-18] MEDS: Diphtheria,Pertussis(Acell),Tetanus Vaccine 0.5 ML Syringe IM ONE (21:45)
[2023-09-18] MEDS: Saccharomyces Boulardii (Probiotic) 250 MG Cap PO SCH (21:45)
[2023-09-18] MEDS: Temazepam 15 MG Cap PO PRN (21:45)
[2023-09-18] MEDS: Acetaminophen/oxyCODONE 325-5 MG Tab PO PRN (21:45)
[2023-09-18] MEDS: Sodium Chloride 0.9% 10 ML Syringe FLUSH SCH (21:45)
[2023-09-18] MEDS: Ampicillin/Sulbactam Na 3 GM in Sodium Chloride 0.9% 100 ML IV SCH (23:50)
[2023-09-19 06:31] LABS: BASOPHILS PERCENT AUTO 1.1 % (0.0-1.0); HEMATOCRIT 42.4 % (40.0-54.0); HEMOGLOBIN 13.9 g/dL (14.0-18.0); LYMPHOCYTES PERCENT AUTO 21.8 % (20.5-50.1); MEAN CORPUSCULAR HEMOGLOBIN 28.9 pg (27.0-34.0); MEAN CORPUSCULAR HGB CONC 32.8 g/dL (33.0-35.0); MEAN CORPUSCULAR VOLUME 88.1 fL (80-100); MONOCYTES PERCENT AUTO 10.3 % (2-8); NEUTROPHILS PERCENT AUTO 63.8 % (42.2-75.2); PLATELET COUNT,PLT 286 10^3/uL (150-450); RED BLOOD CELL COUNT 4.81 10^6/uL (4.6-6.2); WHITE BLOOD CELL COUNT,WBC 9.3 10^3/uL (5.0-10.0)
[2023-09-19 07:06] LABS: ALBUMIN 3.2 g/dL (3.4-5.0); ANION GAP 13.1 mEq/L (7-13); BILIRUBIN TOTAL 0.3 mg/dL (0.2-1.0); BUN/CREATININE RATIO 13.1 (No establ ref range); CALCIUM 8.2 mg/dL (8.5-10.1); CREATININE 1.07 mg/dL (0.70-1.30); EST CRCL DRUG DOSING (CG) 104.58 mL/min; MAGNESIUM 1.9 mg/dL (1.8-2.4); POTASSIUM,K 4.1 mmol/L (3.5-5.1); PROTEIN TOTAL,TP 6.7 g/dL (6.4-8.2)
[2023-09-19 07:12] LABS: A/G RATIO 0.91
[2023-09-19] MEDS: Famotidine 20 MG Tab PO SCH (09:52)
[2023-09-19] MEDS: Enoxaparin 40 MG/0.4 ML Syringe SUBCUT SCH (09:53)
[2023-09-19] MEDS: VANCOmycin 1.5 GM/300 ML 1.5 GM in Premix Bag 1 BAG IV SCH (21:51)
[2023-09-20 06:52] LABS: BASOPHILS PERCENT AUTO 0.9 % (0.0-1.0); EOSINOPHILS PERCENT AUTO 3.8 % (1.0-3.0); HEMATOCRIT 42.6 % (40.0-54.0); HEMOGLOBIN 14.3 g/dL (14.0-18.0); MEAN CORPUSCULAR HEMOGLOBIN 29.4 pg (27.0-34.0); MEAN CORPUSCULAR HGB CONC 33.6 g/dL (33.0-35.0); MEAN CORPUSCULAR VOLUME 87.7 fL (80-100); MONOCYTES PERCENT AUTO 10.3 % (2-8); PLATELET COUNT,PLT 294 10^3/uL (150-450); RED BLOOD CELL COUNT 4.86 10^6/uL (4.6-6.2); WHITE BLOOD CELL COUNT,WBC 7.6 10^3/uL (5.0-10.0)
[2023-09-20 07:14] LABS: ALBUMIN 3.3 g/dL (3.4-5.0); ANION GAP 13.5 mEq/L (7-13); BILIRUBIN TOTAL 0.3 mg/dL (0.2-1.0); BUN/CREATININE RATIO 11.7 (No establ ref range); CALCIUM 8.2 mg/dL (8.5-10.1); CREATININE 1.03 mg/dL (0.70-1.30); EST CRCL DRUG DOSING (CG) 108.64 mL/min; MAGNESIUM 1.8 mg/dL (1.8-2.4); POTASSIUM,K 4.5 mmol/L (3.5-5.1); PROTEIN TOTAL,TP 6.9 g/dL (6.4-8.2)
[2023-09-20 07:17] LABS: A/G RATIO 0.92
[2023-09-21 06:51] LABS: BASOPHILS PERCENT AUTO 1.2 % (0.0-1.0); EOSINOPHILS PERCENT AUTO 4.3 % (1.0-3.0); HEMATOCRIT 43.4 % (40.0-54.0); HEMOGLOBIN 14.4 g/dL (14.0-18.0); LYMPHOCYTES PERCENT AUTO 25.2 % (20.5-50.1); MEAN CORPUSCULAR HEMOGLOBIN 29.1 pg (27.0-34.0); MEAN CORPUSCULAR HGB CONC 33.2 g/dL (33.0-35.0); MEAN CORPUSCULAR VOLUME 87.7 fL (80-100); NEUTROPHILS PERCENT AUTO 60.3 % (42.2-75.2); PLATELET COUNT,PLT 312 10^3/uL (150-450); RED BLOOD CELL COUNT 4.95 10^6/uL (4.6-6.2); WHITE BLOOD CELL COUNT,WBC 7.6 10^3/uL (5.0-10.0)
[2023-09-21 07:15] LABS: ALBUMIN 3.3 g/dL (3.4-5.0); ANION GAP 12.3 mEq/L (7-13); BILIRUBIN TOTAL 0.2 mg/dL (0.2-1.0); BUN/CREATININE RATIO 17.3 (No establ ref range); CALCIUM 8.6 mg/dL (8.5-10.1); CREATININE 1.1 mg/dL (0.70-1.30); EST CRCL DRUG DOSING (CG) 101.73 mL/min; MAGNESIUM 1.9 mg/dL (1.8-2.4); POTASSIUM,K 4.3 mmol/L (3.5-5.1)
[2023-09-21 07:22] LABS: A/G RATIO 0.89
[2023-09-21 07:23] VITALS: PULSE 78
[2023-09-21 12:56] VITALS: BP 120/80
== END 2023-09-21 14:40 | disposition home or self-care (01) | DRG 383 ==
LOC: DL.ED 18:11 → DL.MS 19:06 → DL.ED 19:36 → OBSVTOIN 09-20 10:38
PROVIDERS: ADMIT Internal Medicine; ATTEND Internal Medicine
PROC: 3E0234Z Introduction of Serum, Toxoid and Vaccine into Muscle, Percutaneous Approach (ICD-10-PCS; principal; 2023-09-18)
PROC: 3E02340 Introduction of Influenza Vaccine into Muscle, Percutaneous Approach (ICD-10-PCS; 2023-09-19)
DX: L02.512 Cutaneous abscess of left hand (principal); L08.9 Local infection of the skin and subcutaneous tissue, unspecified; S60.37 Other superficial bite of thumb; Z66 Do not resuscitate; E66.9 Obesity, unspecified; R73.9 Hyperglycemia, unspecified; D72.829 Elevated white blood cell count, unspecified; R00.0 Tachycardia, unspecified; Z68.37 Body mass index [BMI] 37.0-37.9, adult; Z87.891 Personal history of nicotine dependence; W54.0XXD Bitten by dog, subsequent encounter
CPT/HCPCS: 36415; 80053; 80202; 83036; 83735; 85025; 86140; 87040; 87070; 90471; 90715; 99282; A9270-GY; J0295; J1170; J1650; J3370; J3490; J7050